=== PATIENT | female | born 1985 | race Two or more races ===

== ENCOUNTER 2017-07-06 17:16 | Inpatient (IN) | payer OTHER ==
[~2017-07-06] VITALS: Ht 149.9 cm; Wt 55.5 kg
[2017-07-06 17:18] VITALS: Ht 149.9 cm; Wt 55.5 kg
[2017-07-06 18:04] LABS: BASOPHIL % 0.7 % (0-2); PLATELET COUNT 366 x10^3mcL (130-400); RED CELL DISTRIBUTION WIDTH 12.7 % (11.5-14.5)
[2017-07-06 18:07] LABS: ALBUMIN 3.4 g/dL (3.4-5.0); ALKALINE PHOSPHATASE 63 U/L (46-116); ALT/SGPT 14 U/L (14-59); AST/SGOT 16 U/L (15-37); BILIRUBIN TOTAL 0.4 mg/dL (0.20-1.00); CALCIUM 7.7 mg/dL (8.5-10.1); CARBON DIOXIDE 26.3 mmol/L (21-32); CHLORIDE SERUM 109 mmol/L (98-107); GFR1 > 60 mL/min; GLUCOSE SERUM 162 mg/dL (74-106); SODIUM SERUM 141 mmol/L (136-145); TOTAL PROTEIN, SERUM 7.3 g/dL (6.4-8.2)
[2017-07-06 18:18] LABS: CK-MB < 0.5 ng/mL (0-3.6); CREATINE KINASE 72 U/L (26-192)
[2017-07-06 18:23] LABS: POTASSIUM SERUM 2.6 mmol/L (3.5-5.1)
[2017-07-06 19:06] LABS: AMPHETAMINE QUAL UR NONE DETECTED (NEG <=1000)
[2017-07-06 19:56] LABS: CHOLESTEROL/HDL RATIO 4.3; MAGNESIUM 2.6 mg/dL (1.8-2.4); PHOSPHOROUS 1.6 mg/dL (2.5-4.9)
[2017-07-06 20:01] LABS: T3 TOTAL 1.05 ng/mL
[2017-07-06 20:06] LABS: FREE T4 0.91 ng/dL (0.76-1.46); FREE THYROXINE INDEX 1.9 ug/dL (1.4-4.5); T4(THYROXINE) 5.9 ug/dL (4.7-13.3)
[2017-07-06 21:28] LABS: CARBON DIOXIDE 22.9 mmol/L (21-32); CHLORIDE SERUM 106 mmol/L (98-107); GFR1 > 60 mL/min; GLUCOSE SERUM 221 mg/dL (74-106); SODIUM SERUM 139 mmol/L (136-145)
[2017-07-06 21:45] LABS: POTASSIUM SERUM 2.9 mmol/L (3.5-5.1)
[2017-07-06 21:50] VITALS: BP 111/79
[2017-07-07 05:59] VITALS: BP 113/69
[2017-07-07 07:12] LABS: BASOPHIL % 0.3 % (0-2); PLATELET COUNT 322 x10^3mcL (130-400); RED CELL DISTRIBUTION WIDTH 12.9 % (11.5-14.5)
[2017-07-07 07:41] LABS: SODIUM SERUM 141 mmol/L (136-145)
[2017-07-07 07:42] LABS: CALCIUM 7.6 mg/dL (8.5-10.1); CARBON DIOXIDE 22.5 mmol/L (21-32); CHLORIDE SERUM 109 mmol/L (98-107); CREATININE SERUM 0.8 mg/dL (0.6-1.0); GFR1 > 60 mL/min; GLUCOSE SERUM 164 mg/dL (74-106)
[2017-07-07 09:25] LABS: microscopic required? NO
[2017-07-07 09:28] VITALS: BP 106/68
[2017-07-07 09:35] LABS: UA SPECIFIC GRAVITY <=1.005 (1.005-1.035); urine erythrocyte NEGATIVE (NEGATIVE)
[2017-07-07 13:37] VITALS: BP 110/55
[2017-07-07 16:43] VITALS: BP 90/50
[2017-07-07 22:16] VITALS: BP 100/61
[2017-07-08 06:16] VITALS: BP 112/72
[2017-07-08 06:44] LABS: PLATELET COUNT 292 x10^3mcL (130-400); RED CELL DISTRIBUTION WIDTH 13.3 % (11.5-14.5)
[2017-07-08 06:50] LABS: CALCIUM 7.6 mg/dL (8.5-10.1); CHLORIDE SERUM 108 mmol/L (98-107); CREATININE SERUM 0.7 mg/dL (0.6-1.0); GFR1 > 60 mL/min; GLUCOSE SERUM 109 mg/dL (74-106); MAGNESIUM 2.1 mg/dL (1.8-2.4); PHOSPHOROUS 3.5 mg/dL (2.5-4.9); POTASSIUM SERUM 3.7 mmol/L (3.5-5.1); SODIUM SERUM 143 mmol/L (136-145)
[2017-07-08 09:09] LABS: BAND NEUTROPHIL 1 % (0-10); BASOPHIL 0 % (0-2); MONOCYTE 1 % (0-7); SEGMENTED NEUTROPHILS 93 % (37-75)
[2017-07-08 09:10] LABS: PLATELET MORPHOLOGY PLATELETS NORMAL; rbc morphology (normal/abnorm) NORMAL (NORMAL)
[2017-07-08 09:40] VITALS: BP 119/72
[2017-07-08 13:25] VITALS: BP 116/76
[2017-07-08 16:11] VITALS: BP 112/73
[2017-07-08 20:38] VITALS: BP 135/78
[2017-07-09 05:22] LABS: CALCIUM 7.9 mg/dL (8.5-10.1); CHLORIDE SERUM 108 mmol/L (98-107); CREATININE SERUM 0.7 mg/dL (0.6-1.0); GFR1 > 60 mL/min; GLUCOSE SERUM 100 mg/dL (74-106); POTASSIUM SERUM 3.8 mmol/L (3.5-5.1); SODIUM SERUM 142 mmol/L (136-145)
[2017-07-09 05:33] VITALS: BP 105/64
[2017-07-09 05:55] LABS: BASOPHIL % 0.2 % (0-2); PLATELET COUNT 283 x10^3mcL (130-400); RED CELL DISTRIBUTION WIDTH 13.2 % (11.5-14.5)
[2017-07-09 09:45] VITALS: BP 117/75
[2017-07-09] MEDS ORDERED: ZIT250 PO (12:51)
[2017-07-09] MEDS ORDERED: MONTELUKAST SOD10 M1 PO (12:52)
[2017-07-09] MEDS ORDERED: MEDDP PO (12:53)
[2017-07-09] MEDS ORDERED: LAC PO (12:53)
[2017-07-09 13:18] VITALS: BP 117/75
== END 2017-07-09 14:20 | disposition home or self-care (01) | DRG 193 ==
LOC: ED 17:16 → DU 19:16 → MU 07-09 11:35
PROVIDERS: Emergency Medicine; Family Medicine
DX: J18.1 Lobar pneumonia, unspecified organism (principal); J96.01 Acute respiratory failure with hypoxia; J45.901 Unspecified asthma with (acute) exacerbation; E87.2 Acidosis; J45.909 Unspecified asthma, uncomplicated; E87.6 Hypokalemia; J06.0 Acute laryngopharyngitis; E83.41 Hypermagnesemia; E83.39 Other disorders of phosphorus metabolism; E83.51 Hypocalcemia; E78.5 Hyperlipidemia, unspecified
CPT/HCPCS: 36600; 82962; 83880; 84439; J0456; J0696; J2060; J2405; J2920; J2930; J3475; J3480; J3490; J7030; J7050; J7613; J7620; J7626; Q0092; Q9967